=== PATIENT | female | born 1995 | race Caucasian/White ===

== ENCOUNTER 2016-11-21 01:47 | Emergency (ER) | payer OTHER ==
[2016-11-21 02:04] VITALS: BP 128/81; PULSE 72; TEMP 97.8; BMI 26.4
--- NOTE | 2016-11-21 03:14 | PDOC ---
Attending Attestation - Resident Resident Name: [email or web address] - ED Attending Attestation I have performed the following: I have examined & evaluated the patient, The case was reviewed & discussed with the resident, I agree w/resident's findings & plan <Siddharth Butts - Last Filed: 11/21/16 03:13> - HPI HPI: The patient is a 21 yo F who presents with a diffuse rash on her upper and lower extremities. The patient states she went gardening 2 days ago and suspects the rash is a result of contact with poison lesly. The patient is currently breast feeding. The patient is going to take claritin for antihistamine and will purchase cortisol cream for topical use as to not impede . - Physicial Exam PE: GENERAL: Well-appearing, well-nourished. No apparent distress. HEENT: Normocephalic, atraumatic. PERRL, EOM intact. CARDIOVASCULAR: Normal S1, S2. Regular rate and rhythm. PULMONARY: Clear to auscultation bilaterally. ABDOMEN: Soft, non-distended, non-tender. EXTREMITIES: Normal ROM in all four extremities. No gross deformities. SKIN: Warm, dry. erythematous rash on UE and LE strongly suggestive of poison lesly. NEUROLOGICAL: No focal neurological deficits. - Medical Decision Making Documentation prepared by Jamila Mayorga, acting as medical transcription radiology for Siddharth Butts MD/DO. <Jamila Mayorga - Last Filed: 11/21/16 03:19>
--- NOTE | 2016-11-21 03:20 | PDOC ---
History of Present Illness - General Chief Complaint: Poison Horace,Poison Perla Exposure Stated Complaint: RASH Time Seen by Provider: 11/21/16 02:44 History Source: Patient Exam Limitations: No Limitations - History of Present Illness Initial Comments: 11/21/16 03:14 Patient is a 21F with no significant medical history here today complaining of a rash. It is located on her left teague, left arm and stomach. She states that she was gardening on Thursday, and the symptoms started Thursday. The rashes have been puritic. She denies fever, chills, nausea, vomiting, swelling around the mouth, shortness of breath, and wheezing. She states that she doesn't have a history of allergic reactions, and hasn't had something like this before. The rash started on her shins, and has been slowly spreading to other areas of her body. She's currently . Past History - Past Medical History Allergies/Adverse Reactions: Allergies Allergy/AdvReac Type Severity Reaction Status Date / Time No Known Allergies Allergy Verified 11/21/16 02:01 Home Medications: Ambulatory Orders Vit No.124/Iron/FA [ Vitamin Tablet] 1 each PO DAILY 01/15/16 Anemia: Yes Asthma: No Diabetes: No - Immunization History Immunization Up to Date: Yes - Psycho/Social/Smoking Cessation Hx Anxiety: No Suicidal Ideation: No Smoking Status: No Smoking History: Never smoked Have you smoked in the past 12 months: No Number of Cigarettes Smoked Daily: 0 Information on smoking cessation initiated: No Hx Alcohol Use: No Drug/Substance Use Hx: No Substance Use Type: None Review of Systems - Review of Systems Constitutional: No: Chills, Fever, Weakness HEENTM: No: Eye Pain, Blurred Vision, Recent change in vision Respiratory: No: Cough, Orthopnea, Shortness of Breath Cardiac (ROS): No: Chest Pain, Edema, Lightheadedness ABD/GI: No: Nausea, Vomiting : No: Burning, Dysuria Integumentary: Yes: Pruritus, Rash Neurological: No: Headache, Dizziness *Physical Exam - Vital Signs Last Vital Signs Temp Pulse Resp BP Pulse Ox 97.8 F 72 19 128/81 98 11/21/16 02:01 11/21/16 02:01 11/21/16 02:01 11/21/16 02:11/21/16 02:01 - Physical Exam Comments: 11/21/16 03:17 Gen: Well appearing, in no acute distress Skin: Maculopapular rash on left teague, LUQ of abdomen, and left arm. No discharge, nontender, not warm to touch CV: RRR, no murmurs rubs and gallops Lungs: Clear to auscultation bilaterally, normal work of breathing Abd: Soft nontender, normal bowel sounds Ext:2+ pulses in all extremities Neuro: Awake, alert, no focal neuro deficits Mouth: No swelling or exudates Medical Decision Making - Medical Decision Making 11/21/16 03:20 21 year old woman here today with rash. History and exam is consistent with poison perla or oak exposure. Recommended taking infant to see PCP tomorrow due to infant developing a rash. Will discharge with directions to take OTC loratidine and topical hydrocortisone. *DC/Admit/Observation/Transfer Diagnosis at time of Disposition: Contact dermatitis due to poison perla - Discharge Dispostion Disposition: HOME Condition at time of disposition: Good Admit: No - Patient Instructions Printed Discharge Instructions: DI for Poison Perla Allergy - Attestations Physician Attestion: 11/21/16 03:22 I, Dr. Conner Sow, attest that this document has been prepared under my direction and personally reviewed by me in its entirety. I further attest, that it accurately reflects all work, treatment, procedures and medical decision -making performed by me.
== END 2016-11-21 03:50 | disposition home or self-care (01) ==
LOC: JER 01:47
DX: L23.7 Allergic contact dermatitis due to plants, except food (principal)
CPT/HCPCS: 99281-25

== ENCOUNTER 2017-04-06 22:31 | Emergency (ER) | payer OTHER ==
[2017-04-07 01:20] VITALS: BP 125/55; PULSE 75; TEMP 98.7; BMI 26.4
[2017-04-07 01:43] LABS: URINE APPEARANCE CLEAR; URINE BILIRUBIN NEGATIVE (NEGATIVE); URINE BLOOD NEGATIVE (NEGATIVE); URINE COLOR YELLOW; URINE GLUCOSE (UA) NEGATIVE (NEGATIVE); URINE KETONE NEGATIVE (NEGATIVE); URINE NITRITE NEGATIVE (NEGATIVE); URINE PROTEIN NEGATIVE (NEGATIVE)
[2017-04-07 02:01] LABS: BASOPHIL 0.6 % (0-2.0); MCH 30.1 pg (25.7-33.7); MCHC 33.5 g/dl (32.0-36.0); MEAN PLT VOLUME 10.5 fl (7.5-11.1); NEUTROPHILS 63.6 % (42.8-82.8); PLATELET COUNT 221 K/MM3 (134-434); RDW 13.4 % (11.6-15.6); WHITE BLOOD COUNT 9.3 K/mm3 (4.0-10.0)
--- NOTE | 2017-04-07 02:03 | PDOC ---
History of Present Illness - General Chief Complaint: Pain Stated Complaint: ABDOMINAL PAIN Time Seen by Provider: 04/06/17 23:52 - History of Present Illness Initial Comments: 04/07/17 02:03 CHIEF COMPLAINT: lower abd pain HISTORY OF PRESENT ILLNESS: 21 yo F with no PMH presents to ED with suprapubic pain since today. Patient states she has had irregular periods since the delivery of her child in May. She states she did not have a period until September, and then after that stopped having her period again until March 23. She denies any current vaginal bleeding. She denies any change in urination, frequency, or hematuria. She denies any fever, chills, vomiting, diarrhea. PAST MEDICAL HISTORY: Denies past medical history FAMILY HISTORY: Denies SOCIAL HISTORY: Denies tobacco, alcohol, illicit drug use. SURGICAL HISTORY: Denies ALLERGIES: No known drug allergies REVIEW OF SYSTEMS General/Constitutional: Denies fever or chills. Denies weakness, weight change. HEENT: Denies change in vision. Denies ear pain or discharge. Denies sore throat. Cardiovascular: Denies chest pain or shortness of breath. Respiratory: Denies cough, wheezing, or hemoptysis. Gastrointestinal: Denies nausea, vomiting, diarrhea or constipation. Denies rectal bleeding. Genitourinary: Suprapubic discomfort x 1 day. Denies dysuria, frequency, or change in urination. Musculoskeletal: Denies joint or muscle swelling or pain. Denies neck or back pain. Skin and breasts: Denies rash or easy bruising. PHYSICAL EXAM General Appearance: Well-appearing, appropriately dressed. No apparent distress. HEENT: EOMI, PERRLA. No conjunctival pallor. No photophobia, scleral icterus. Respiratory/Chest: Lungs CTAB. Cardiovascular: RRR. S1, S2. Gastrointestinal/Abdominal: Normal bowel sounds. Abdomen soft, non-distended. No tenderness or rebound tenderness. No organomegaly, pulsatile mass, guarding , hernia, hepatomegaly, splenomegaly. Pelvic: External genitalia normal without lesions. Vaginal vault is clear without blood or discharge. Cervix is long and closed. No cervical motion tenderness. Uterus is nontender and normal in size. Adnexa are nontender and without masses. Musculoskeletal/Extremities: Normal inspection. FROM of all extremities, normal capillary refill. Pelvis Stable. No CVA tenderness. No tenderness to extremities, pedal edema, swelling, erythema or deformity. Integumentary: Appropriate color, dry, warm. No cyanosis, erythema, jaundice or rash Neurologic: paving foreman II-XII intact. Fully oriented, alert. Appropriate mood/affect. Motor strength 5/5. No appreciable EOM palsy, facial droop or sensory deficit. 04/07/17 02:05 04/07/17 02:38 Past History - Past Medical History Allergies/Adverse Reactions: Allergies Allergy/AdvReac Type Severity Reaction Status Date / Time No Known Allergies Allergy Verified 04/07/17 01:17 Home Medications: Ambulatory Orders Vit No.124/Iron/FA [ Vitamin Tablet] 1 each PO DAILY 01/15/16 Ibuprofen 400 mg PO TID PRN #21 tablet 04/07/17 Anemia: Yes Asthma: No Diabetes: No - Immunization History Immunization Up to Date: Yes - Suicide/Smoking/Psychosocial Hx Smoking Status: No Smoking History: Never smoked Have you smoked in the past 12 months: No Number of Cigarettes Smoked Daily: 0 Information on smoking cessation initiated: No Hx Alcohol Use: No Drug/Substance Use Hx: No Substance Use Type: None *Physical Exam - Vital Signs Last Vital Signs Temp Pulse Resp BP Pulse Ox 98.7 F 75 14 125/55 100 04/07/17 01:18 04/07/17 01:18 04/07/17 01:18 04/07/17 01:18 04/07/17 01:18 ED Treatment Course - LABORATORY CBC & Chemistry Diagram: 04/07/17 01:44 04/07/17 01:20 - ADDITIONAL ORDERS Additional order review: Laboratory Results 04/07/17 01:20 Urine Color Yellow Urine Appearance Clear Urine pH 6.0 Ur Specific [place] 1.028 Urine Protein Negative Urine Glucose (UA) Negative Urine Ketones Negative Urine Blood Negative Urine Nitrite Negative Urine Bilirubin Negative Urine Urobilinogen 2.0 H - RADIOLOGY Radiology Studies Ordered: Category Date Time Status PELVIC / BLADDER US [US] Stat Ultrasound 04/07/17 01:09 Taken *DC/Admit/Observation/Transfer Diagnosis at time of Disposition: Suprapubic pain, acute - Discharge Dispostion Disposition: HOME Condition at time of disposition: Stable Admit: No - Prescriptions Prescriptions: Ibuprofen 400 mg PO TID PRN #21 tablet PRN Reason: Pain - Referrals Referrals: Faizan Hall [Primary Care Provider] - Vinicio Whiteside MD [Staff Physician] - - Patient Instructions Printed Discharge Instructions: DI for Pelvic Pain Additional Instructions: Please follow up with Dr. Coburn as discussed. If you develop any vaginal bleeding, worsening pain, vomiting, chills, fever, diarrhea, or any new or worsening symptoms, please return to the ER. - Post Discharge Activity
[2017-04-07 02:25] LABS: ALBUMIN 3.8 g/dl (3.4-5.0); ALK PHOS 153 U/L (45-117); ANION GAP 9 (8-16); BILIRUBIN,TOTAL 0.2 mg/dL (0.2-1.0); CALCIUM 9.2 mg/dL (8.5-10.1); CO2 26 mmol/L (21-32); CREATININE 0.5 mg/dL (0.55-1.02); GLUCOSE,RANDOM 98 mg/dL (74-106); SGOT/AST 24 U/L (15-37); SGPT/ALT 69 U/L (12-78); TOT PROT 7.2 g/dl (6.4-8.2)
[2017-04-07 12:50] LABS: URINE LEUK ESTERASE Negative (NEGATIVE)
== END 2017-04-07 02:49 | disposition home or self-care (01) ==
LOC: JER 22:31
DX: R10.30 Lower abdominal pain, unspecified (principal)
CPT/HCPCS: 36415; 76856-TC; 80053; 81003; 83690; 84702; 85025; 99283-25